=== PATIENT | female | born 1955 | race Hispanic/Latino ===

== ENCOUNTER 2020-02-21 09:00 | Observation (INO) | payer OTHER ==
[~2020-02-21] VITALS: Ht 165.1 cm; Wt 117.8 kg
[2020-02-21 11:20] VITALS: BP 143/74
[2020-02-23] MEDS ORDERED: ASCO100031 PO (15:00)
[2020-02-23] MEDS ORDERED: AEC81 PO (15:00)
[2020-02-23] MEDS ORDERED: CHOL500050 PO (15:00)
[2020-02-23] MEDS ORDERED: LOSA50TA64 PO (15:00)
[2020-02-23] MEDS ORDERED: CALC-17 PO (15:00)
[2020-02-23] MEDS ORDERED: OXYB10TA30 PO (15:00)
[2020-02-23] MEDS ORDERED: ACET-2743 PO (15:00)
[2020-02-23] MEDS ORDERED: ZINC50TA15 PO (15:00)
[2020-02-23] MEDS ORDERED: LEVO150 PO ×2 (15:00)
[2020-02-23] MEDS ORDERED: CHLO25TA3 PO (15:00)
[2020-02-23] MEDS ORDERED: DICL2100G TP (15:00)
[2020-02-28] VITALS (24 sets, daily range): BP systolic 100–127; BP diastolic 32–66
[2020-02-28] MEDS ORDERED: CEFAZOLIN SODIUM 1 GM VIAL IVP SCH (06:00)
[2020-02-28] MEDS ORDERED: LACTATED RINGERS 1000ML 1,000 ML IV ONE (06:32)
[2020-02-28] MEDS ORDERED: FOLIC ACID PO (07:41)
[2020-02-28] MEDS ORDERED: LIDOCAINE PF 2% 5ML ABBOJECT ONE ×2 (08:39→08:41)
[2020-02-28] MEDS ORDERED: NEOSTIGMINE 5MG/5ML SYR IV ONE (08:40)
[2020-02-28] MEDS ORDERED: PROPOFOL 10 MG/ML 20ML VIAL IV ONE (08:40)
[2020-02-28] MEDS ORDERED: SUCCINYLCHOLINE CHLORIDE 20 MG/ML 10 ML VIAL ONE ×2 (08:40→08:41)
[2020-02-28] MEDS ORDERED: DEXAMETHASONE SOD PHOSPHATE 10MG/ML 1ML VIAL ONE (08:40)
[2020-02-28] MEDS ORDERED: MIDAZOLAM HCL 1 MG/ML 2ML VIAL ONE (08:40)
[2020-02-28] MEDS ORDERED: ONDANSETRON HCL 4 MG/2 ML VIAL ONE (08:40)
[2020-02-28] MEDS ORDERED: GLYCOPYRROLATE 1 MG/5 ML SYRINGE ONE ×2 (08:40→12:15)
[2020-02-28] MEDS ORDERED: ROCURONIUM 10MG/1ML SYR 10 MG/ML ML ONE ×2 (08:41→10:23)
[2020-02-28] MEDS ORDERED: FENTANYL CITRATE PF 50 MCG/1 ML 2ML VIAL ONE ×2 (08:41→11:09)
[2020-02-28] MEDS ORDERED: CEFAZOLIN SODIUM 1 GM VIAL ONE ×2 (08:48→08:49)
[2020-02-28] MEDS ORDERED: ACETAMINOPHEN EXTRA STRENGTH 500 MG TABLET ONE (09:13)
[2020-02-28] MEDS ORDERED: METOCLOPRAMIDE 10 MG/2 ML VIAL ONE (09:13)
[2020-02-28] MEDS ORDERED: CELECOXIB 200 MG CAP ONE (09:14)
[2020-02-28] MEDS ORDERED: ROPIVACAINE 0.5% 5MG/ML 30ML IJ ONE (09:36)
[2020-02-28] MEDS ORDERED: TRANEXAMIC ACID 1000MG/10ML ONE ×2 (09:40→12:22)
[2020-02-28] MEDS ORDERED: PHENYLEPHRINE HCL 10 MG/ML 1ML VIAL IV ONE (11:48)
[2020-02-28] MEDS ORDERED: DiphenhydrAMINE HCL 50 MG/ML VIAL IVP PRN (12:15)
[2020-02-28] MEDS ORDERED: KETOROLAC TROMETHAMINE 15MG/ML IV PRN (12:15)
[2020-02-28] MEDS ORDERED: OXYCODONE HCL 5 MG TAB PO PRN (12:15)
[2020-02-28] MEDS: SODIUM CHLORIDE 0.9% 1000ML 1,000 ML IV SCH (12:15)
[2020-02-28] MEDS ORDERED: POTASSIUM CHLORIDE 10% ELIXIR 20 MEQ/15 ML UDCUP PO PRN (12:15)
[2020-02-28] MEDS ORDERED: TEMAZEPAM 15 MG CAPSULE PO PRN (12:15)
[2020-02-28] MEDS ORDERED: TRAMADOL HCL 50 MG TABLET PO PRN (12:15)
[2020-02-28] MEDS ORDERED: POTASSIUM CHLORIDE 20 MEQ ERTAB PO PRN (12:15)
[2020-02-28] MEDS ORDERED: CALCIUM CARBONATE 500 MG TABLET PO PRN (12:15)
[2020-02-28] MEDS ORDERED: ONDANSETRON HCL 4 MG/2 ML VIAL IVP PRN (12:15)
[2020-02-28] MEDS: ACETAMINOPHEN EXTRA STRENGTH 500 MG TABLET PO SCH ×2 (12:15→20:58)
[2020-02-28] MEDS ORDERED: FERROUS FUMARATE 324 MG TABLET PO PRN (12:15)
[2020-02-28] MEDS ORDERED: POTASSIUM CHLORIDE 20MEQ/100ML 100 ML IV PRN (12:15)
[2020-02-28] MEDS ORDERED: LIDOCAINE HCL-MPF 1% 2ML VIAL IV PRN (12:15)
[2020-02-28] MEDS ORDERED: MEPERIDINE-PF 25 MG/ML SYG ONE ×2 (13:03→13:12)
[2020-02-28] MEDS: CEFAZOLIN SODIUM 1 GM VIAL IVP SCH (17:01)
[2020-02-28] MEDS: OXYCODONE HCL 5 MG TAB PO PRN (18:05)
[2020-02-28] MEDS: ZINC SULFATE 220 CAPSULE PO SCH (20:55)
[2020-02-28] MEDS: ASPIRIN 81MG TAB.CHEW PO SCH (20:57)
[2020-02-28] MEDS: PREGABALIN 25 MG CAP PO SCH (20:57)
[2020-02-28] MEDS: CALCIUM CARBONATE 500 MG TABLET PO SCH (20:57)
[2020-02-28] MEDS: CELECOXIB 200 MG CAP PO SCH (20:57)
[2020-02-28] MEDS: FAMOTIDINE 20MG TAB 20 MG TAB PO SCH (20:57)
[2020-02-28] MEDS: ASCORBIC ACID 500 MG TAB PO SCH (20:57)
[2020-02-29] MEDS: CEFAZOLIN SODIUM 1 GM VIAL IVP SCH (01:06)
[2020-02-29] MEDS: SODIUM CHLORIDE 0.9% 1000ML 1,000 ML IV SCH ×2 (01:07→08:15)
[2020-02-29 03:44] LABS: HEMATOCRIT 25.6 % (36-48); MEAN CORPUSCULAR HEMOGLOBIN 29.7 pg (27.0-33.0); MEAN CORPUSCULAR HGB CONC 32.4 g/dL (32.0-36.0); MEAN CORPUSCULAR VOLUME 91.8 fL (79-99); RED BLOOD CELL COUNT(AUTO) 2.79 MIL/uL (4.00-5.50); WHITE BLOOD COUNT (AUTO) 8.6 K/uL (4.8-10.8)
[2020-02-29 03:57] LABS: CREATININE 1.5 mg/dL (0.5-1.5)
[2020-02-29 04:14] VITALS: BP 110/52
[2020-02-29] MEDS ORDERED: LEVOTHYROXINE 150 MCG TABLET ONE (04:58)
[2020-02-29] MEDS: ACETAMINOPHEN EXTRA STRENGTH 500 MG TABLET PO SCH ×3 (05:11→20:39)
[2020-02-29] MEDS: LEVOTHYROXINE 150 MCG TABLET PO SCH (05:16)
[2020-02-29 08:06] VITALS: BP 99/52
[2020-02-29] MEDS: ZINC SULFATE 220 CAPSULE PO SCH ×2 (08:36→20:38)
[2020-02-29] MEDS: FAMOTIDINE 20MG TAB 20 MG TAB PO SCH ×2 (08:36→20:38)
[2020-02-29] MEDS: ASCORBIC ACID 500 MG TAB PO SCH ×2 (08:36→20:38)
[2020-02-29] MEDS: PREGABALIN 25 MG CAP PO SCH ×2 (08:36→20:39)
[2020-02-29] MEDS: POLYETHYLENE GLYCOL 3350 17 GM POWD.PACK PO SCH (08:36)
[2020-02-29] MEDS: FOLIC ACID 1 MG TABLET PO SCH (08:36)
[2020-02-29] MEDS: CHOLECALCIFEROL 1000 MCG PO SCH (08:37)
[2020-02-29] MEDS: LOSARTAN 50 MG TABLET PO SCH (08:37)
[2020-02-29] MEDS: **HM**(Chlorthalidone 25 MG PO SCH (08:37)
[2020-02-29] MEDS: OXYBUTYNIN 5 MG TAB.SR.24H PO SCH (08:43)
[2020-02-29] MEDS: ASPIRIN 81MG TAB.CHEW PO SCH ×2 (08:44→20:38)
[2020-02-29] MEDS: CELECOXIB 200 MG CAP PO SCH ×2 (08:44→20:38)
[2020-02-29] MEDS: CALCIUM CARBONATE 500 MG TABLET PO SCH ×2 (08:44→20:38)
[2020-02-29 11:18] VITALS: BP 92/55
[2020-02-29] MEDS: OXYCODONE HCL 5 MG TAB PO PRN (13:26)
[2020-02-29 16:09] VITALS: BP 97/56
[2020-02-29 19:00] VITALS: BP 92/44
[2020-02-29 19:59] LABS: HEMATOCRIT 25.5 % (36-48)
[2020-03-01] VITALS: BP 111/58
[2020-03-01 04:00] VITALS: BP 109/50
[2020-03-01 04:58] LABS: BASOPHILS % (AUTO) 0.3 % (0.0-5.0); EOSINOPHILS % (AUTO) 3.1 % (0.0-8.0); HEMATOCRIT 24.3 % (36-48); LYMPHOCYTES % (AUTO) 10.3 % (21.0-51.0); MEAN CORPUSCULAR HEMOGLOBIN 29.5 pg (27.0-33.0); MEAN CORPUSCULAR HGB CONC 32.5 g/dL (32.0-36.0); MEAN CORPUSCULAR VOLUME 90.7 fL (79-99); MONOCYTES % (AUTO) 10.2 % (3.0-13.0); NEUTROPHILS % (AUTO) 75.7 % (40.0-77.0); PLATELET COUNT (AUTO) 256 K/uL (130-400); RED BLOOD CELL COUNT(AUTO) 2.68 MIL/uL (4.00-5.50); RED CELL DISTRIBUTION WIDTH 13.2 % (11.0-15.5); WHITE BLOOD COUNT (AUTO) 9.6 K/uL (4.8-10.8)
[2020-03-01 05:26] LABS: CREATININE 1.7 mg/dL (0.5-1.5); POTASSIUM 3.7 mmol/L (3.5-5.1)
[2020-03-01] MEDS: LEVOTHYROXINE 150 MCG TABLET PO SCH (05:36)
[2020-03-01] MEDS: ACETAMINOPHEN EXTRA STRENGTH 500 MG TABLET PO SCH ×2 (05:36→11:55)
[2020-03-01 08:02] VITALS: BP 98/43
[2020-03-01] MEDS: CHOLECALCIFEROL 1000 MCG PO SCH (09:00)
[2020-03-01] MEDS: LOSARTAN 50 MG TABLET PO SCH (09:00)
[2020-03-01] MEDS: **HM**(Chlorthalidone 25 MG PO SCH (09:00)
[2020-03-01] MEDS: OXYCODONE HCL 5 MG TAB PO PRN (09:09)
[2020-03-01] MEDS: FAMOTIDINE 20MG TAB 20 MG TAB PO SCH (09:52)
[2020-03-01] MEDS: CALCIUM CARBONATE 500 MG TABLET PO SCH (09:53)
[2020-03-01] MEDS: PREGABALIN 25 MG CAP PO SCH (09:53)
[2020-03-01] MEDS: FOLIC ACID 1 MG TABLET PO SCH (09:53)
[2020-03-01] MEDS: OXYBUTYNIN 5 MG TAB.SR.24H PO SCH (09:53)
[2020-03-01] MEDS: ASCORBIC ACID 500 MG TAB PO SCH (09:53)
[2020-03-01] MEDS: ASPIRIN 81MG TAB.CHEW PO SCH (09:53)
[2020-03-01] MEDS: CELECOXIB 200 MG CAP PO SCH (09:53)
[2020-03-01] MEDS: ZINC SULFATE 220 CAPSULE PO SCH (09:53)
[2020-03-01] MEDS: POLYETHYLENE GLYCOL 3350 17 GM POWD.PACK PO SCH (09:54)
[2020-03-01 11:45] VITALS: BP 114/64
[2020-03-01 16:00] VITALS: BP 115/43
[2020-03-01] MEDS ORDERED: BENZ1TAB90 PO (17:44)
[2020-03-01] MEDS ORDERED: ASPI-1005 PO (17:44)
[2020-03-01] MEDS ORDERED: FERR324T10 PO (17:44)
[2020-03-01] MEDS ORDERED: HYDR-4457 PO (19:14)
[2020-03-02] MEDS ORDERED: BISACODYL 10 MG SUPP.RECT RC PRN (12:15)
[2020-03-05] MEDS ORDERED: LEVOTHYROXINE 150 MCG TABLET PO SCH (06:30)
== END 2020-03-01 19:43 | disposition home or self-care (01) ==
LOC: DAHIP 02-28 05:58 → EDSTATUS 02-28 09:00 → 3AH 02-28 11:54
PROVIDERS: ADMIT Orthopaedic Surgery; ATTEND Orthopaedic Surgery
DX: M17.11 Unilateral primary osteoarthritis, right knee (principal); Z20.828 Contact with and (suspected) exposure to other viral communicable diseases; D62 Acute posthemorrhagic anemia; I10 Essential (primary) hypertension; E89.0 Postprocedural hypothyroidism; Z85.820 Personal history of malignant melanoma of skin; Z90.711 Acquired absence of uterus with remaining cervical stump; Z90.5 Acquired absence of kidney; Z79.899 Other long term (current) drug therapy; Z88.8 Allergy status to other drugs, medicaments and biological substances
CPT/HCPCS: 27447; 36415 ×2; 36430; 80048 ×2; 85014; 85018; 85025; 85027; 86850; 86900; 86901; 86922; 87641; 96361 ×2; 96374; 96375; 96376; 97039 ×4; 97116 ×2; 97161; 97530 ×4; A4215; A4221; A4222; A4223; A4649 ×3; A4663; A4930 ×2; A9272; C1776; G0378 ×52; G8979; G8980; G8982; G8983; J0330 ×2; J0690 ×5; J1100; J1885; J2001 ×2; J2175 ×2; J2250; J2370; J2405; J2704; J2710; J2765; J2795; J3010 ×2; J3490 ×4; J7030 ×2; J7120 ×2; P9016; U0003

== ENCOUNTER → 2023-05-12 | Outpatient (CLI) | payer OTHER ==
[~2023-05-12] MED LIST: ACET-2743 PO; ASCO100031 PO; ASPI-1005 PO; BENZ1TAB90 PO; CALC-17 PO; CHLO25TA3 PO; CHOL500050 PO; DICL2100G TP; FERR324T10 PO; FOLIC ACID PO; HYDR-4457 PO; LEVO150 PO; LOSA50TA64 PO; OXYB10TA30 PO; ZINC50TA15 PO
== END | disposition home or self-care (01) ==
LOC: RAH 08:33
PROVIDERS: ATTEND Family Medicine
DX: S83.232A Complex tear of medial meniscus, current injury, left knee, initial encounter (principal); M25.562 Pain in left knee; X58.XXXA Exposure to other specified factors, initial encounter; Y93.89 Activity, other specified; Y92.89 Other specified places as the place of occurrence of the external cause; Y99.8 Other external cause status
CPT/HCPCS: 73721

== ENCOUNTER 2023-08-27 07:01 | Observation (INO) | payer OTHER ==
[2023-08-25 11:52] LABS: APPEARANCE,URINE CLEAR (CLEAR); BILIRUBIN,URINE NEGATIVE (NEGATIVE); COLOR,URINE LIGHT-YELLOW (YELLOW); GLUCOSE, URINE (UA) NEGATIVE (NEGATIVE); KETONES,URINE NEGATIVE (NEGATIVE); LEUKOCYTE ESTERASE ,URINE NEGATIVE Leu/uL (NEGATIVE); NITRATE,URINE NEGATIVE (NEGATIVE); OCCULT BLOOD,URINE NEGATIVE (NEGATIVE); PH,URINE 5.5 (5.0-8.0); PROTEIN,URINE NEGATIVE (NEGATIVE); UROBILINOGEN,URINE 0.2 mg/dL (0.2-1.0)
[2023-08-25 11:54] LABS: ADD UA MICROSCOPIC NO
[2023-08-25 12:18] LABS: BASOPHILS # (AUTO) 0.04 K/uL (0.00-0.20); BASOPHILS % (AUTO) 0.5 % (0.0-5.0); EOSINOPHILS # (AUTO) 0.29 K/uL (0.00-0.70); EOSINOPHILS % (AUTO) 3.4 % (0.0-8.0); HEMATOCRIT 32.2 % (36-48); IMMATURE GRANULOCYTE ABSOLUTE 0.04 K/uL (0-1); LYMPHOCYTES # (AUTO) 1.5 K/uL (1.0-4.8); LYMPHOCYTES % (AUTO) 17.8 % (21.0-51.0); MEAN CORPUSCULAR HEMOGLOBIN 31.5 pg (27.0-33.0); MEAN CORPUSCULAR HGB CONC 32.3 g/dL (32.0-36.0); MEAN CORPUSCULAR VOLUME 97.6 fL (79-99); MONOCYTES # (AUTO) 0.6 K/uL (0.1-1.0); MONOCYTES % (AUTO) 6.5 % (3.0-13.0); NEUTROPHILS # (AUTO) 6.1 K/uL (1.8-7.7); NEUTROPHILS % (AUTO) 71.3 % (40.0-77.0); PLATELET COUNT (AUTO) 330 K/uL (130-400); RED CELL DISTRIBUTION WIDTH 13.2 % (11.0-15.5); WHITE BLOOD COUNT (AUTO) 8.5 K/uL (4.8-10.8)
[2023-08-25 12:38] VITALS: BP 128/55; PULSE 60; RESP 17
[2023-08-25 12:45] LABS: INR 0.98 (0.85-1.15); PARTIAL THROMBOPLASTIN TIME 28.3 SEC (26.3-35.5); PROTHROMBIN TIME 10.4 SEC (9.6-11.6)
[2023-08-25 12:55] LABS: ALBUMIN 3.9 g/dL (3.5-5.0); CREATININE 1.6 mg/dL (0.5-1.0); POTASSIUM 4.1 mmol/L (3.5-5.1)
[2023-08-27] VITALS (27 sets, daily range): BP systolic 110–141; BP diastolic 42–72; PULSE 55–97; RESP 10–20; O2SAT 98
[~2023-08-27] VITALS: Ht 162.6 cm; Wt 115.3 kg
[2023-08-27] MEDS: LACTATED RINGERS 1000ML 1,000 ML IV ONE
[~2023-08-27 07:01] MED LIST changes: -ACET-2743 PO; -ASCO100031 PO; -ASPI-1005 PO; -BENZ1TAB90 PO; +CALC-125 PO; -CALC-17 PO; -CHOL500050 PO; -DICL2100G TP; -FERR324T10 PO; -FOLIC ACID PO; +FURO20TA4 PO; -HYDR-4457 PO
[2023-08-27] MEDS ORDERED: LIDOCAINE PF 100MG/5ML (2%) SYRINGE 5ML ONE (08:45)
[2023-08-27] MEDS ORDERED: MIDAZOLAM HCL 1 MG/ML 2ML VIAL ONE (08:45)
[2023-08-27] MEDS ORDERED: ROCURONIUM BROMIDE 10MG/1ML 5ML VL ONE ×2 (08:45→09:42)
[2023-08-27] MEDS ORDERED: FENTANYL CITRATE PF 50 MCG/1 ML 2ML VIAL ONE ×2 (08:45→11:00)
[2023-08-27] MEDS ORDERED: PROPOFOL 10 MG/ML 20ML VIAL IV ONE (08:45)
[2023-08-27] MEDS: CEFAZOLIN SODIUM 2 GM VIAL ONE (08:58)
[2023-08-27] MEDS: TRANEXAMIC ACID 1000MG/10ML ONE ×2 (09:00→10:50)
[2023-08-27] MEDS ORDERED: ONDANSETRON 4MG INJ ONE (09:02)
[2023-08-27] MEDS ORDERED: DEXAMETHASONE SOD PHOSPHATE 10MG/ML 1ML VIAL ONE ×2 (09:02→10:18)
[2023-08-27] MEDS ORDERED: NEOSTIGMINE METHYLSULFATE 1MG/ML IV ONE (09:20)
[2023-08-27] MEDS ORDERED: GLYCOPYRROLATE 0.2 MG/ML 5 ML VIAL ONE (09:20)
[2023-08-27] MEDS ORDERED: PHENYLEPHRINE HCL 10 MG/ML 1ML VIAL IV ONE (09:21)
[2023-08-27] MEDS: KETOROLAC 30MG VIAL (30MG/ML) ONE (09:22)
[2023-08-27] MEDS: ROPIVACAINE 0.5% 5MG/ML 30ML ONE (09:22)
[2023-08-27] MEDS ORDERED: CALCIUM PO (09:31)
[2023-08-27] MEDS ORDERED: ROPIVACAINE 0.5% 5MG/ML 30ML ONE (10:17)
[2023-08-27] MEDS ORDERED: POTASSIUM CHLORIDE 20MEQ/100ML 100 ML IV PRN (11:00)
[2023-08-27] MEDS ORDERED: KCL 20 MEQ ERTAB PO PRN (11:00)
[2023-08-27] MEDS ORDERED: FERROUS FUMARATE 324 MG TABLET PO PRN (11:00)
[2023-08-27] MEDS ORDERED: KETOROLAC 15MG/ML VIAL (15MG/ML) IV SCH (11:00)
[2023-08-27] MEDS ORDERED: POTASSIUM CHLORIDE 10% ELIXIR 20 MEQ/15 ML UDCUP PO PRN (11:00)
[2023-08-27] MEDS ORDERED: DiphenhydrAMINE HCL 50 MG/ML VIAL IVP PRN (11:00)
[2023-08-27] MEDS ORDERED: CYCLOBENZAPRINE HCL 10 MG TABLET PO PRN (11:00)
[2023-08-27] MEDS ORDERED: CALCIUM CARB 500MG PO PRN (11:00)
[2023-08-27] MEDS: INSULIN HUMULIN R 100 UNIT/ML 3ML SQ SCH (11:30)
[2023-08-27] MEDS: ACETAMINOPHEN 1,000 MG/100 ML VIAL IV ONE (12:09)
[2023-08-27] MEDS: MEPERIDINE-PF 25 MG/ML SYG ONE (12:10)
[2023-08-27] MEDS: ONDANSETRON 4MG INJ ONE (12:11)
[2023-08-27] MEDS: HYDROCODONE/ACETAMINOPHEN 5/325 MG TAB PO PRN (13:46)
[2023-08-27] MEDS: GABAPENTIN 100 MG CAPSULE PO SCH (13:46)
[2023-08-27] MEDS ORDERED: ASCO100031 PO (16:50)
[2023-08-27] MEDS ORDERED: CHOL100046 PO (16:50)
[2023-08-27] MEDS: 0.9%NACL 1000ML 1,000 ML IV SCH (17:36)
[2023-08-27] MEDS: CEFAZOLIN SODIUM 2 GM VIAL IVPB SCH (17:36)
[2023-08-27] MEDS: OXYBUTYNIN 5 MG TAB.SR.24H PO SCH (20:27)
[2023-08-27] MEDS: DOCUSATE SODIUM 100 MG CAP PO SCH (20:27)
[2023-08-27] MEDS ORDERED: CALCIUM 1000 MG PO SCH (21:00)
[2023-08-27] MEDS ORDERED: NON-FORMULARY MEDICATION 1 EACH (Oxybutynin Chloride (Oxybutynin Chloride ER) 10 MG) PO SCH (21:00)
[2023-08-27] MEDS: ONDANSETRON 4MG INJ IVP PRN (22:23)
[2023-08-28] VITALS: BP 114/58; PULSE 68; RESP 19
[2023-08-28 04:00] VITALS: BP 121/63; PULSE 59; RESP 20
[2023-08-28 04:08] LABS: HEMATOCRIT 28.7 % (36-48); MEAN CORPUSCULAR HEMOGLOBIN 31.8 pg (27.0-33.0); MEAN CORPUSCULAR HGB CONC 33.1 g/dL (32.0-36.0); RED BLOOD CELL COUNT(AUTO) 2.99 MIL/uL (4.00-5.50); RED CELL DISTRIBUTION WIDTH 12.9 % (11.0-15.5); WHITE BLOOD COUNT (AUTO) 15.8 K/uL (4.8-10.8)
[2023-08-28 04:22] LABS: CREATININE 2.1 mg/dL (0.5-1.0); POTASSIUM 4.1 mmol/L (3.5-5.1)
[2023-08-28] MEDS: LEVOTHYROXINE 150 MCG TABLET ONE (06:19)
[2023-08-28] MEDS: LEVOTHYROXINE 150 MCG TABLET PO SCH (06:24)
[2023-08-28 06:37] VITALS: PULSE 76; RESP 18; O2SAT 100
[2023-08-28 07:35] VITALS: BP 116/51; PULSE 77; RESP 20
[2023-08-28] MEDS: ASPIRIN 325MG EC TAB PO SCH (08:26)
[2023-08-28] MEDS: LOSARTAN 50 MG TABLET PO SCH (08:27)
[2023-08-28] MEDS: FUROSEMIDE 20 MG TABLET PO SCH (08:27)
[2023-08-28] MEDS: POLYETHYLENE GLYCOL 3350 17 GM POWD.PACK PO SCH (08:27)
[2023-08-28] MEDS: Chlorthalidone 25 MG PO SCH (09:00)
[2023-08-28] MEDS ORDERED: KETOROLAC 15MG/ML VIAL (15MG/ML) IV PRN (11:00)
[2023-08-28] MEDS: TRAMADOL HCL 50 MG TABLET PO PRN (11:26)
[2023-08-28 11:35] VITALS: BP 104/56; PULSE 60; RESP 20
[2023-08-28] MEDS ORDERED: ASPI-891 PO (14:29)
[2023-08-28] MEDS ORDERED: CYCL-309 PO (14:29)
[2023-08-28] MEDS ORDERED: DOCU-116 PO (14:29)
[2023-08-28] MEDS ORDERED: GABA100C PO (14:29)
[2023-08-28] MEDS ORDERED: HYDR-4060 PO (14:29)
[2023-08-30] MEDS ORDERED: BISACODYL 10 MG SUPP.RECT RC PRN (11:00)
== END 2023-08-28 18:15 | disposition home or self-care (01) ==
LOC: DAH 07:01 → DAHIP 07:02 → DAH 07:02 → 4BH 12:40
PROVIDERS: ADMIT Student in an Organized Health Care Education/Training Program; ATTEND Student in an Organized Health Care Education/Training Program
DX: M17.12 Unilateral primary osteoarthritis, left knee (principal); D62 Acute posthemorrhagic anemia; M23.204 Derangement of unspecified medial meniscus due to old tear or injury, left knee; I10 Essential (primary) hypertension; E03.9 Hypothyroidism, unspecified; E05.90 Thyrotoxicosis, unspecified without thyrotoxic crisis or storm; E66.01 Morbid (severe) obesity due to excess calories; Z79.899 Other long term (current) drug therapy; Z98.890 Other specified postprocedural states
CPT/HCPCS: 82040; 80048 ×2; 85025; 85610; 85730; 87086; 84134; 86140; 81003; 36415 ×3; 93005; 87641; 64447; 96365; 96366; 96375; 27447; 86850; 86900; 86901; 86923; 82948 ×2; 73560; 97161; 97116 ×3; 97530 ×5; 85027; G0378 ×28; A4663; J7120 ×2; A4215 ×2; J3010 ×2; J3490 ×5; J1100 ×2; J7030; J2001; J2250; J2704; J2405 ×3; J1885; J2710; J2175; J2795 ×2; J2371; J0690 ×3; C1713 ×2; G0168; C1776 ×2; A4649; A6255; A5120; A4223; A4213; A4222; A4221